=== PATIENT | male | born 1965 | race Two or more races ===

== ENCOUNTER 2025-05-06 00:15 | Emergency (ER) | payer SELFPAY ==
[2025-05-06 00:16] VITALS: BMI 26.6
[2025-05-06 00:50] VITALS: BP 144/79; PULSE 105; RESP 20; TEMP 37; O2SAT 100
--- NOTE | 2025-05-06 01:06 | PD.EDRME ---
Rapid Medical Screening Exam RME Arrival date/time: 05/06/25 00:15 Chief Complaint: Seizure Vital signs: Vital Signs Temperature 98.6 F 05/06/25 00:50 Pulse Rate 105 H 05/06/25 00:50 Respiratory Rate 20 05/06/25 00:50 Blood Pressure 144/79 H 05/06/25 00:50 Pulse Oximetry (%) 100 05/06/25 00:50 Oxygen Delivery Method Room Air 05/06/25 00:50 Pulse ox on room air is 100% Vital signs reviewed by provider: Yes RME Narrative: 59-year-old male who has been described as if by family member to be an alcoholic fell while having a seizure possibly hitting his head. Family member tells me the seizure lasted approximately 1 minute. Family member tells me patient does not have a memory due to his chronic alcoholism.
--- NOTE | 2025-05-06 01:09 | XR_ITS ---
Examination: CT brain head without contrast. 2-D sagittal coronal reconstructions Date and time of exam:May 06, 2025 0137 hours INDICATIONS: Onset seizure this morning CTDI: vol (mGy):29.5 DLP: (mGycm):985 Technique: Multiple CT axial sections of the brain have been obtained, 5 mm slice thickness. Contrast has not been administered. 2-D sagittal, coronal reconstructions have been obtained Low dose protocols were performed. One or more of the following dose reduction techniques were used; automated exposure control, adjustment of the mA and/or KV according to patient size, use of iterative reconstruction technique. Findings: No significant ventricular enlargement. Intra-axial or extra-axial hemorrhage density is not seen. No mass effect or midline shift Basal cisterns are not remarkable. Fourth ventricle is midline. Cranial vault intact. Impression: Negative for acute hemorrhage, mass effect or midline shift Consider elective brain MRI follow-up, pre and postcontrast, seizure protocol
[2025-05-06 01:30] LABS: Lactate (Lactic Acid) 1.2 mMol/L (0.4-2.0)
[2025-05-06 01:32] LABS: Collection Type, Urine Clean Catch; Squamous Epithelial Cell,Urine 0 /hpf (0-5)
[2025-05-06 01:50] LABS: Basophils # (Auto) 0.1 Thou/mm3 (0.0-0.2); Basophils % (Auto) 1 % (0-2.5); Eosinophils # (Auto) 0.1 Thou/mm3 (0.0-0.5); Eosinophils % (Auto) 1 % (0-10); Hematocrit 27.5 % (41.0-53.0); Hemoglobin 8.9 g/dL (13.5-16.0); Immature Granulocytes % (Auto) 1 % (0-0); Immature Granulocytes Auto 0.06 Thou/mm3 (0.00-0.00); Lymphocytes # (Auto) 0.6 Thou/mm3 (1.0-4.8); Lymphocytes % (Auto) 6 % (10-50); Mean Corpuscular HGB Conc 32.4 g/dl (31.0-37.0); Mean Corpuscular Hemoglobin 25.4 pg (25.0-35.0); Mean Corpuscular Volume 78 fL (80-100); Monocytes # (Auto) 0.7 Thou/mm3 (0.0-0.8); Monocytes % (Auto) 7 % (0-12); Neutrophils # (Auto) 8.4 Thou/mm3 (1.8-7.7); Neutrophils % (Auto) 85 % (37-80); Nucleated Red Blood Cell % 0 /100 WBC (0); Platelet Count 150 Thou/mm3 (140-440); RDW Standard Deviation 51.4 fL (35.1-43.9); Red Blood Count 3.51 Miln/mm3 (4.50-5.90)
[2025-05-06 01:52] LABS: Bilirubin,Urine Negative (Negative); Blood,Urine Negative (Negative); Clarity,Urine Clear (Clear/Hazy); Color,Urine Yellow (Lt Yel-Yel); Culture Indicated,Urine Not Indicated; Glucose, Urine Negative (Negative); Ketones,Urine 1+ (Negative); Leukocyte Esterase,Urine Negative (Negative); Nitrite,Urine Negative (Negative); Protein,Urine 1+ (Neg - Trace); RBC,Urine 1 /hpf (0-3); Specific Gravity,Urine 1.024 (1.001-1.035); WBC,Urine 2 /hpf (0-5)
[2025-05-06 01:57] LABS: Alanine Aminotransferase 31 U/L (10-49); Albumin, Serum 4.5 gm/dL (3.5-5.0); Albumin/Globulin Ratio 1.5 (1.2-2.2); Alcohol, Blood Medical < 3.0 mg/dL (0-10.0); Alkaline Phosphatase 272 U/L (46-116); Anion Gap 11 (7-16); BUN/Creatinine Ratio 11 Ratio (12-20); Bilirubin,Total 1.2 mg/dL (0.3-1.2); Blood Urea Nitrogen 8 mg/dL (9-23); Calcium 9.2 mg/dL (8.3-10.6); Calcium (Corrected) 9.2 mg/dL (8.5-10.1); Chloride 98 mMol/L (98-107); Creatinine (Component) 0.7 mg/dL (0.6-1.3); Estimated Creatinine Clearance 100.1 mL/min (>60); Globulin 3.1 gm/dL (2.3-3.5); Glucose 139 mg/dL (74-106); Osmolality,Calculated 268 (275-295); Potassium 2.8 mMol/L (3.4-5.1); Sodium 134 mMol/L (136-145); Total Protein 7.6 gm/dL (5.7-8.2); eGFR > 60 See Note
--- NOTE | 2025-05-06 02:08 | PRELIM_ITS ---
CT scan of the head without intravenous contrast (axial sections with sagittal and coronal reformats) May 06, 2025 0137 hours Clinical history: siezure s/p fall/ETOH abuse No prior study is available for comparison. Findings: There is no evidence of intracranial hemorrhage, mass effect or midline shift. There are mild periventricular white matter hypodensities, likely representing chronic small vessel ischemia. There is mild volume loss. A prominent cisterna magna is incidentally noted. The calvarium is unremarkable. There is mild mucosal thickening in the right maxillary sinus. The mastoid air cells and the other visualized paranasal sinuses are clear. Impression: No evidence of intracranial hemorrhage, mass effect or midline shift. Periventricular chronic small vessel ischemia and volume loss. Report Electronically Signed By: Glenroy Blandon 05/06/2025 2:07:20 AM [EST]
[2025-05-06 02:16] VITALS: BP 138/83; PULSE 90; RESP 18; O2SAT 98
--- NOTE | 2025-05-06 02:20 | PD.EDSEIZ ---
ED Seizures RME/HPI General Chief Complaint: Seizure Stated Complaint: POSSIBLE SEIZURE Time Seen by Provider: 05/06/25 01:25 Arrival date/time: 05/06/25 00:15 RME / HPI RME / HPI Narrative: 59-year-old male who has been described as if by family member to be an alcoholic fell while having a seizure possibly hitting his head. Family member tells me the seizure lasted approximately 1 minute. Family member tells me patient does not have a memory due to his chronic alcoholism. --------- Dr. Victor?s Main ED Evaluation: 59yo male brought in by his friend presents to the ED for a chief complaint of a seizure. Friend states he witnessed the patient falling, reporting the patient had a seizure that lasted ~1 minute. Patient states he is a daily alcoholic drinker, but denies any history of withdrawals. He does not remember having the seizure. Patient endorses feeling fatigues. Otherwise, he denies any fever, chills, N/V, shortness of breath or any other associated symptoms. NKA. Related Data Allergies Allergy/AdvReac Type Severity Reaction Status Date / Time No Known Allergies Allergy Verified 05/06/25 00:18 Review of Systems Review of Systems Systems Reviewed: All systems reviewed, normal except as documented Past Medical History Past Medical History NEUROLOGIC: Positive Seizures CARDIAC: Negative Congestive Heart Failure RESPIRATORY: Negative Chronic Obstructive Pulmonary Disease (COPD) GASTROINTESTINAL: Positive Cirrhosis GENITOURINARY: Negative Renal Disease ENDOCRINE: Negative Diabetes Mellitus Type 1 or Diabetes Mellitus Type 2 PSYCHO/SOCIAL: Positive Recreational Drug Use (meth) Social History SMOKING STATUS: Never smoker ED Exam Narrative Physical exam: GENERAL APPEARANCE: alert and oriented x 4, well-developed, well-nourished, no acute distress VITALS: All vitals were reviewed and the pulse ox is 98% on room air, which is normal according to my interpretation. HEENT: Normocephalic, atraumatic; pupils equal, round, reactive to light; EOMI; mucous membranes pink, moist; oropharynx clear NECK: Supple LUNGS: CTABL; no wheezes, no rales, no rhonchi HEART: Regular rate, regular rhythm; normal S1, S2; no murmurs ABDOMEN: non distended; normal BS; soft, no tenderness, no guarding, no rebound; no masses, no organomegaly, no hernia BACK: no CVA tenderness EXTREMITIES: atraumatic; no edema NEUROLOGIC: awake; alert and oriented x4; cranial nerves II-XII grossly intact; no focal sensory or motor deficits PSYCHIATRIC: appropriate mood and affect SKIN: warm, dry, normal color; no rashes Course Quality Measures none Orders Category Date Time Status Blood glucose [Bedside Blood Glucose] NOW Care 05/06/25 00:[address] head/brain wo con Stat Exams 05/06/25 01:09 Taken Alcohol, Blood Medical Stat Lab 05/06/25 01:17 Results CBC Stat Lab 05/06/25 01:17 Completed CMP [Comprehensive Metabolic Panel] Stat Lab 05/06/25 01:17 Results Drug Screen,Urine Stat Lab 05/06/25 01:21 Received Lactate (Lactic Acid) Stat Lab 05/06/25 01:17 Completed Magnesium Stat Lab 05/06/25 01:17 Results UA, C/S IF [Urinalysis, C/S if Indicated] Stat Lab 05/06/25 01:21 Completed KCL 10% Liq UDC 15 ML Med 05/06/25 02:24 Discontinued 40 meq PO X1 ONE Magnesium Oxide [Mag-Ox 400] Med 05/06/25 02:24 Discontinued 400 mg PO X1 ONE Vital Signs Vital signs: Vital Signs Temperature 98.6 F 05/06/25 00:50 Pulse Rate 105 H 05/06/25 00:50 Respiratory Rate 20 05/06/25 00:50 Blood Pressure 144/79 H 05/06/25 00:50 Pulse Oximetry (%) 100 05/06/25 00:50 Oxygen Delivery Method Room Air 05/06/25 00:50 Seizure MDM Narrative MDM Narrative:: Scribe Attestation: 05/06/25 Shani Strickland am scribing for and in the presence of Dr. Victor. Patient data External records reviewed:: [facility] previous records (Per chart review, patient has no previous ED visits or admissions to this facility.) Clinical information provided by:: patient and friend Social determinants that could affect healthcare access:: substance use (history of alcohol and methamphetamine use) Patient has the following chronic illnesses:: cirrhosis How is presenting disease/condition affected by chronic disease/condition?: uneffected by Evaluation data The following diagnostics were reviewed and interpreted by me:: lab results and radiology exam(s) Lab and/or radiology exams considered but not ordered:: none Interpretation Summary: WBC normal, HnH 8.9/27.5, Potassium low 2.8, Lactic Acid normal, UA unremarkable, Blood Alcohol negative. Telerad Preliminary Report Draft Patient: ERIC WINCHESTER Record#: [id number] Birthdate: 1965 Age/Sex: 59 / M Location: [facility] Attending Dr: Ordering Physician: Date of Service: Procedure(s): Accession Number(s): cc: ~ CT scan of the head without intravenous contrast (axial sections with sagittal and coronal reformats) May 06, 2025 0137 hours Clinical history: siezure s/p fall/ETOH abuse No prior study is available for comparison. Findings: There is no evidence of intracranial hemorrhage, mass effect or midline shift. There are mild periventricular white matter hypodensities, likely representing chronic small vessel ischemia. There is mild volume loss. A prominent cisterna magna is incidentally noted. The calvarium is unremarkable. There is mild mucosal thickening in the right maxillary sinus. The mastoid air cells and the other visualized paranasal sinuses are clear. Impression: No evidence of intracranial hemorrhage, mass effect or midline shift. Periventricular chronic small vessel ischemia and volume loss. Report Electronically Signed By: Glenroy Blandon 05/06/2025 2:07:20 AM Medications / Prescriptions Medications or Prescriptions considered but not ordered:: none Medication administrations:: Medication Administration History Discontinued Medications Magnesium Oxide (Magnesium Oxide 400 Mg Tablet) 400 mg PO X1 ONE Stop: 05/06/25 02:25 Potassium Chloride (Potassium Chloride 10% 20 Meq/15 Ml Udc) 40 meq PO X1 ONE Stop: 05/06/25 02:25 see above Consultations Consultation(s) initiated? (list below): No Diagnosis Seizure Differential Diagnosis: other (seizure, seizure-like activity, alcohol withdrawal seizure) Most likely diagnosis given after review of the tests above:: see clinical impression below Admission Indicated Admission indicated?: not indicated Admission Request Was there a request for admission?: No Disposition Plan Disposition Plan: Discharge Discharge Attestation Discharge Attestation: The patient and all family members were given an opportunity to ask questions and understood the discharge instructions. Discharge instructions specifically effects, indications for sooner follow up or return to the emergency department, and the expected course of current diagnosis. Patient condition: Stable Discharge Plan Plan Patient Disposition: HOME (Self Care) Prescriptions/Referrals Referrals: Temporary Provider,ED [Primary Care Provider] - In 1 week Problem List Clinical Impression: Anemia, Hypokalemia, Witnessed seizure-like activity Patient/Caregiver Discharge Instructions Education Materials: ED Alcohol Withdrawal Seizure, ED Anemia Type Not Specified Print Language: Lithuanian Stand Alone Forms: Emily Award Info., Patient Portal Info Letter
[2025-05-06 02:51] LABS: Amphetamine/Methamp Scrn,U Negative (Negative); Barbiturate Screen,Urine Negative (Negative); Benzodiazepines Screen,Urine Negative (Negative); Benzoylecgonine Screen, Ur Negative (Negative); Fentanyl Screen,Urine Negative (Negative); Opiate Screen,Urine Negative (Negative); THC Screen,Urine Positive (Negative)
[2025-05-06] MEDS: POTASSIUM CHLORIDE 10% 20 MEQ/15 ML UDC 40 MEQ PO (02:52)
[2025-05-06] MEDS: MAGNESIUM OXIDE 400 MG TABLET PO (02:52)
[2025-05-06 02:59] LABS: Magnesium 1.8 mg/dL (1.6-2.6)
[2025-05-06 03:01] VITALS: BP 138/83; PULSE 85; RESP 18; O2SAT 98
== END 2025-05-06 03:01 | disposition home or self-care (01) ==
PROVIDERS: Physician Assistant; Emergency Provider Emergency Medicine
DX: R56.9 Unspecified convulsions (principal); E87.6 Hypokalemia; D64.9 Anemia, unspecified; F10.20 Alcohol dependence, uncomplicated; I67.82 Cerebral ischemia
CPT/HCPCS: 36415; 70450; 80053; 80307; 80320; 81001; 83605; 83735; 85025; 99284; A9270; G0480